=== PATIENT | male | born 1960 | race Caucasian/White ===

== ENCOUNTER 2020-04-12 15:16 | Inpatient (IN) | payer OTHER ==
[~2020-04-12] VITALS: Ht 180.3 cm; Wt 90.7 kg
[~2020-04-12 15:16] MED LIST: ADULT LOW DOSE81 MG PO; LIPITOR40 MG PO; METOPROLOL SUCC50 MG PO; NOHOMEMEDICATIONS
[2020-04-12 15:20] VITALS: BP 149/99
[2020-04-12 15:44] LABS: ABSOLUTE NEUTROPHILS 4.5 thou/uL (1.4-8.2); EOSINOPHILS 0.8 % (0.0-3.0); HEMATOCRIT 47.2 % (42.0-52.0); HEMOGLOBIN 15.8 gm/dL (14.0-18.0); LYMPHOCYTES 20.8 % (24.0-44.0); MCHC 33.4 g/dL (28.0-37.0); MCV 86.8 fL (80.0-100.0); MONOCYTES 8.1 % (1.0-8.0); PLATELET COUNT 190 thou/uL (150-400); POLYS 69.3 % (36.0-66.0); RBC 5.44 mil/uL (4.50-6.00); RDW 14.2 % (10.5-14.5); WBC 6.5 thou/uL (4.0-11.0)
[2020-04-12 16:26] LABS: CALCIUM 9.1 mg/dL (8.5-10.1); CREATININE 1.1 mg/dL (0.7-1.3); POTASSIUM 3.8 mmol/L (3.5-5.1)
[2020-04-12 16:35] LABS: ALBUMIN 4.1 g/dL (3.4-5.0)
[2020-04-12 16:41] LABS: TROPONIN-I 3.63 ng/mL (<0.06)
--- NOTE | 2020-04-12 17:49 | EKG ---
[facility] [place] [address] ELECTROCARDIOGRAM REPORT Name: ABRAN SORENSEN Room #: REG M.R.#: [id number] Admission: 04/12/20 Attend Phys: Discharge: Date of : 64 Report #: [id number] THIS REPORT FOR: cc: FAM - Family physician unknown FAM - Family physician unknown Cristopher Ramos MD [facility] ~ THIS REPORT FOR: //name// [facility] ED Test Date: 2020-04-12 Test Time: 15:23:54 Pat Name: ABRAN SORENSEN Department: Room: Gender: M Fashion Stylist: SATHYA : 1960 Requested By: Robbin Aburto Order Number: [id number] MD: Cristopher Ramos Measurements Intervals [place] Rate: 82 P: 50 ND: 160 QRS: 22 QRSD: 95 T: 31 QT: 386 QTc: 451 Interpretive Statements Sinus rhythm Left atrial enlargement Abnormal R-wave progression, late transition Borderline repolarization abnormality Baseline wander in lead(s) I,aVL,V1 Compared to ECG 08/17/2019 07:10:59 Atrial abnormality now present Left ventricular hypertrophy no longer present Electronically Signed On 04-12-2020 17:49:43 CDT by Cristopher Ramos [email or web address] <ELECTRONICALLY SIGNED> By: Cristopher Ramos MD, [facility] 04/12/20 1749 1523 1523 Cristopher Ramos MD, [facility] /EPI
[2020-04-12 17:51] LABS: URINE BILIRUBIN NEGATIVE (Negative); URINE BLOOD NEGATIVE (Negative); URINE CLARITY CLEAR; URINE COLOR YELLOW; URINE GLUCOSE-RANDOM* NEGATIVE (Negative); URINE KETONES NEGATIVE (Negative); URINE LEUKOCYTES-REFLEX NEGATIVE (Negative); URINE NITRITE-REFLEX NEGATIVE (Negative); URINE PROTEIN (DIPSTICK) NEGATIVE (Negative); URINE SPECIFIC GRAVITY 1.015 (1.005-1.035); URINE UROBILINOGEN 0.2 E.U./dl (0.2-1.0)
[2020-04-12 20:16] VITALS: BP 150/94
--- NOTE | 2020-04-13 00:48 | NUR ---
PATIENT TRANSFERRED FROM ER AND ADMITTED TO CCU FOR NSTEMI. ASSUMED CARE OF PATIENT AT APPROXIMATELY 1930. ADMISSION COMPLETED. DURING MED RECONCILE PATIENT STATED THAT HE STOPPED TAKING HIS ATORVASTATIN AFTER PREVIOUS HEART SURGERY IN AUG 2019 BECAUSE HE LOST A LOT OF WEIGHT IN A TWO WEEK PERIOD WHILE TAKING IT. PATIENT STATES THAT HE IS NOT TAKING ANY MEDICATIONS. BP IN 150s/90s. PATIENT DENIES ANY CHEST PAIN DURING ASSESSMENT. WILL CONTINUE TO MONITOR.
[2020-04-13 04:56] VITALS: BP 138/87
[2020-04-13 05:17] LABS: APTT 31.4 Seconds (24.5-32.8); PROTIME 10.2 Seconds (9.3-11.4)
[2020-04-13 05:22] LABS: CALCIUM 8.6 mg/dL (8.5-10.1); CREATININE 1.2 mg/dL (0.7-1.3); POTASSIUM 4.2 mmol/L (3.5-5.1)
[2020-04-13 05:36] LABS: TROPONIN-I 6.88 ng/mL (<0.06)
[2020-04-13 07:35] VITALS: BP 135/89
--- NOTE | 2020-04-13 09:48 | EKG ---
[facility] [place] [address] ELECTROCARDIOGRAM REPORT Name: ABRAN SORENSEN Room #: 200-I ADM IN M.R.#: [id number] Admission: 04/12/20 Attend Phys: Louis Blanton MD Discharge: Date of : 64 Report #: [id number] THIS REPORT FOR: cc: FAM - Family physician unknown FAM - Family physician unknown Marco Antonio Reynolds MD ~ THIS REPORT FOR: //name// [facility] Test Date: 2020-04-13 Test Time: 08:31:21 Pat Name: ABRAN SORENSEN Department: Room: 200 I Gender: M Director Of Occupational Health: COMPA : 1960 Requested By: Louis Blanton Order Number: [id number] MD: Marco Antonio Reynolds Measurements Intervals [place] Rate: 72 P: 58 ME: 162 QRS: 64 QRSD: 96 T: 81 QT: 381 QTc: 417 Interpretive Statements Sinus rhythm Left atrial enlargement Nonspecific ST-T wave changes Baseline wander in lead(s) V1,V2 Compared to ECG 04/12/2020 15:23:54 No significant change Electronically Signed On 04-13-2020 9:48:40 CDT by Marco Antonio Reynolds [email or web address] <ELECTRONICALLY SIGNED> By: Marco Antonio Reynolds MD 04/13/2048 0 0 Marco Antonio Reynolds MD /EPI
--- NOTE | 2020-04-13 11:25 | NUR ---
Received awake on bed. Due medications given as prescribed with minimal sips of water- Dr Hdz informed and aware. A+Ox4. With at bedside- update given. On telemetry- no complain of chest pain, crushing sensation and heaviness. On room air. Vital signs stable. On nothing per orem- pt informed and aware. Continent of bowel and bladder- able to use urinal and go to the toilet independently. Up ad scotty. With SL at R AC- intact and flushing well. For cardiac cath today- a/w time and consent to be signed. Pt fetched by laboratory tester staff via bed; report given; present during transfer. To continue monitoring patient.
[2020-04-13 12:53] VITALS: BP 118/67
--- NOTE | 2020-04-13 15:18 | NUR ---
Patient admits from home with stemi. 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 He sp with [facility] today and plans to call at [facility]. Offered to transfer to [facility] and patient reports he just wants to go home from here. Patients PCP is Dr Campbell at [facility]. [employer] COUNTER PERSON patient reports independent with adls and self care.
[2020-04-13 15:48] VITALS: BP 135/81
[2020-04-13] MEDS ORDERED: METOPROLOL SUCC50 MG PO (15:48)
[2020-04-13] MEDS ORDERED: ASPIR 8181 MG PO (15:48)
[2020-04-13] MEDS ORDERED: LIPITOR80 MG PO (15:48)
--- NOTE | 2020-04-13 16:27 | 2DMMODE ---
[facility] [address] [place] [address] 2 D/M-MODE ECHOCARDIOGRAM Name: ABRAN SORENSEN Room #: 200-I ADM IN M.R.#: [id number] Admission: 04/12/20 Attend Phys: Louis Blanton MD Discharge: Date of : 64 Report #: [id number] THIS REPORT FOR: cc: FAM - Family physician unknown FAM - Family physician unknown Blayne Terrazas MD [facility] ~ APPROVED REPORT Study performed: 04/13/2020 14:05:32 EXAM: Comprehensive 2D, Doppler, and color-flow Echocardiogram Patient Location: Bedside Room #: 200 Status: routine BSA: 2.11 HR: 61 bpm BP: 135/89 mmHg Rhythm: NSR Other Information Study Quality: Adequate Indications STEMI, status post angiogram no intervention done. Hx: CABG. 2D Dimensions RVDd: 35.47 mm IVSd: 13.74 (7-11mm) LVOT Diam: 23.38 (18-24mm) LVDd: 44.47 mm PWd: 10.10 (7-11mm) Ascending Ao: 37.33 (22-36mm) LVDs: 33.44 (25-40mm) Aortic Root: 38.99 mm Volumes Left Atrial Volume (Systole) Single Plane 4CH: 33.85 mL Single Plane 2CH: 61.72 mL LA ESV Index: 24.00 mL/m2 Aortic Valve AoV Peak Aakash.: 1.00 m/s AO Peak Gr.: 4.01 mmHg LVOT Max P.90 mmHg LVOT Max V: 0.69 m/s SOCORRO Vmax: 2.95 cm2 [facility] [address] [place] [address] 2 D/M-MODE ECHOCARDIOGRAM Name: EDUABRAN Room #: 200-I [facility] IN [facility].#: [id number] Admission: 04/12/20 Attend Phys: Louis Blanton MD Discharge: Date of : 64 Report #: [id number] Mitral Valve E/A Ratio: 1.4 MV Decel. Time: 244.07 ms MV E Max Aakash.: 0.46 m/s MV A Aakash.: 0.33 m/s MV PHT: 70.78 ms IVRT: 58.82 ms Pulmonary Valve PV Peak Aakash.: 0.87 m/s PV Peak Gr.: 3.05 mmHg Pulmonary Vein P Vein S: 0.34 m/s P Vein A: 0.22 m/s P Vein D: 0.27 m/s P Vein A Dur.: 147.6 msec P Vein S/D Ratio: 1.26 Tricuspid Valve TR Peak Aakash.: 1.90 m/s RAP Estimate: 5.00 mmHg TR Peak Gr.: 14.00 mmHg PA Pressure: 19.00 mmHg Left Ventricle The left ventricle is normal size. There is normal LV segmental wall motion. There is normal left ventricular wall thickness. Left ventricular systolic function is at the lower limits of normal LVEF is 50%. Moderate diastolic dysfunction Right Ventricle The right ventricle is normal size. Right ventricle is mildly hypokinetic. Atria The left atrium size is normal. The right atrium size is normal. Aortic Valve The aortic valve is normal in structure. No aortic regurgitation is present. There is no aortic valvular stenosis. Mitral Valve The mitral valve is normal in structure. Mild mitral regurgitation. No evidence of mitral valve stenosis. Tricuspid Valve The tricuspid valve is normal in structure. Mild tricuspid [facility] [place] [address] [place] [address] 2 D/M-MODE ECHOCARDIOGRAM Name: ABRAN SORENSEN Room #: 200-I ADM IN .R.#: [id number] Admission: 04/12/20 Attend Phys: Louis Blanton MD Discharge: Date of : 64 Report #: [id number] regurgitation. Estimated PAP is 20mmHg. Pulmonic Valve The pulmonary valve is normal in structure. Mild pulmonic regurgitation. Great Vessels Aortic root measures at the upper limits of normal. The ascending aorta is normal in size. IVC is normal in size and collapses >50% with inspiration. Pericardium There is no pericardial effusion. <Conclusion> Left ventricular systolic function is at the lower limits of normal There is normal LV segmental wall motion. LVEF is 50%. Moderate diastolic dysfunction Right ventricle is mildly hypokinetic. The aortic valve is normal in structure. No aortic regurgitation or stenosis The mitral valve is normal in structure. Mild mitral regurgitation. Mild tricuspid regurgitation. Estimated pulmonary artery pressure of 20mmHg. There is no pericardial effusion. <ELECTRONICALLY SIGNED> By: Blayne Terrazas MD, [facility] 04/13/20 1627 162 162 Blayne Terrazas MD, FAC /INF
--- NOTE | 2020-04-13 16:40 | NUR ---
ASSUMED CARE APPROX 1400. PT ALERT AND ORIENTED X4. ASSESSMENT CHARTED AND VSS. PT TO BE DISCHARGED HOME TODAY. PT SR ON TELE MONITOR. PT ON ROOM AIR W/O SIGNS OF DISTRESS NOTED. PT DENIES ACUTE PAIN. DENIES CHEST PAIN. BEDREST COMPLETED @1500. PT RT POST CATH GROIN SITE C/D/I. NO HEMATOME PRESENT. PT AMBULATED W/O DIFFICULTY AFTER BEDREST. AT BEDSIDE. TELE MONITOR REMOVED FROM PT. IV D/C'D. DISCHARGE INSTRUCTIONS/PACKET DISCUSSED WITH PT. AND PT DENY IS QUESTIONS OR CONCERNS REGARDING DISCHARGE INSTRUCTIONS.
[2020-04-13 16:44] VITALS: BP 135/81
--- NOTE | 2020-04-14 17:31 | CATHLAB ---
[facility] [place] [address] INVASIVE PROCEDURE REPORT Name: ABRAN SORENSEN Room #: 200-I DIS IN M.R.#: [id number] Admission: 04/12/20 Attend Phys: Louis Blanton MD Discharge: 04/13/20 Date of : 64 Report #: [id number] THIS REPORT FOR: cc: FAM - Family physician unknown FAM - Family physician unknown Benny Hdz MD [facility] ~ APPROVED REPORT Study performed: 04/13/2020 09:56:25 Patient Details Patient Status: In-Patient Room #: The patient is a 60 year-old male Event Personnel Benny Hdz Interactive Media Specialist, Lupe Kim RN RN, Marie Richmond RTR Monitor, Lashell Ponce RT(R)() Scrub Procedures Performed Art Access - R femoral artery* Left Heart Cath Coronaries, Bypass Grafts [id number] LHCCORCABG 97225 Initial Mod Sed Same Phys/QHP Gr5y [id number] 75720 Mod Sed Same Phys/QHP Ea 144665 Hemostasis w/ Mynx Aortogram Abdominal Peripheral Angio 616704 Procedure Narrative The Right Groin^ was infiltrated with 1% Lidocaine subcutaneous anesthesia. A PINNACLE 6FR Sheath #[id number] sheath was inserted into the RFA^. Coronary angiography was performed using coronary diagnostic catheters. The right coronary system was accessed and visualized with a JR4 catheter. The left coronary system was accessed and visualized with a JL4 catheter. The left ventricle was accessed and visualized with a PIGTAIL catheter. Left ventriculogram was performed in 30 degree projection. An aortogram of the abdominal aorta was performed. Pre-demployment femoral angiogram was performed . Closure device was deployed with a Fr MYNXGRIP 6/7F #[id number]. The patient tolerated the procedure well and there were no complications associated with the procedure. There was no hematoma. Intraoperative Conscious Sedation Sedation start time: 11:26 Case end Time: 12:02 Fentanyl 100 mcg Versed 2 mg Fluoro Time: 4.40 minutes [facility] [address] [place] [address] INVASIVE PROCEDURE REPORT Name: ABRAN SORENSEN Room #: 200-I [facility] IN .R.#: [id number] Admission: 04/12/20 Attend Phys: Louis Blanton MD Discharge: 04/13/20 Date of : 64 Report #: [id number] Dose: DAP 9798.30 cGycm2 1313 mGy Contrast Type and Amount: Omnipaque 150 ml Hemodynamics The aortic pressure is 112/66 mmHg with a mean of mmHg. The left ventricular pressure is 109/2 mmHg with a mean of mmHg. Conclusion #1. Normal left ventricular size inferior basilar hypokinetic segment EF 55% 1-2+ mitral regurgitation #2 abdominal aorta revealing mild aortic ectasia but no definite having aneurysm brisk flow #3 left main with mild disease giving rise to an LAD which occludes and a circumflex OM which remains intact. LAD is a high-grade lesion of 80% at the septal takeoff and then subtotally occluded at the bifurcation of the LAD diagonal branch #4 circumflex OM nondominant with mild disease #5 HASTINGS graft is mildly atretic but small caliber brisk flow into a small diffusely diseased mid distal LAD some subtle retrograde filling to the diagonal. LAD is small in caliber but extends around the apex. #6 proximal [place] right coronary artery occluded #7 SVG to the PDA remains intact some retrograde filling of the posterior lateral system is noted. No occlusive disease #8 patent SVG to diagonal branch remains intact and also providing some retrograde filling of the diagonal and proximal LAD. Recommendations and plan: Continue aggressive risk factor modification. Reinstitute medications which he had stopped due to noncompliance. No indication for intervention. Not clear the etiology of a troponin of 6.0. <ELECTRONICALLY SIGNED> By: Benny Hdz MD, [facility] 04/14/201729 29 29 Benny Hdz MD, FACC /INF
== END 2020-04-13 17:08 | disposition home or self-care (01) | DRG 280 ==
LOC: ER 15:16 → EROBS 18:22 → 2N 18:22
PROVIDERS: Physician Assistant; ADMIT Internal Medicine; ATTEND Internal Medicine
PROC: B2111ZZ Fluoroscopy of Multiple Coronary Arteries using Low Osmolar Contrast (ICD-10-PCS; principal; 2020-04-13)
PROC: B2181ZZ Fluoroscopy of Left Internal Mammary Bypass Graft using Low Osmolar Contrast (ICD-10-PCS; principal; 2020-04-13)
PROC: 4A023N7 Measurement of Cardiac Sampling and Pressure, Left Heart, Percutaneous Approach (ICD-10-PCS; principal; 2020-04-13)
PROC: B4101ZZ Fluoroscopy of Abdominal Aorta using Low Osmolar Contrast (ICD-10-PCS; principal; 2020-04-13)
PROC: B2131ZZ Fluoroscopy of Multiple Coronary Artery Bypass Grafts using Low Osmolar Contrast (ICD-10-PCS; principal; 2020-04-13)
PROC: B2151ZZ Fluoroscopy of Left Heart using Low Osmolar Contrast (ICD-10-PCS; principal; 2020-04-13)
DX: I21.4 Non-ST elevation (NSTEMI) myocardial infarction (principal); I50.31 Acute diastolic (congestive) heart failure; I25.110 Atherosclerotic heart disease of native coronary artery with unstable angina pectoris; E78.5 Hyperlipidemia, unspecified; I08.3 Combined rheumatic disorders of mitral, aortic and tricuspid valves; I10 Essential (primary) hypertension; E78.00 Pure hypercholesterolemia, unspecified; Z82.49 Family history of ischemic heart disease and other diseases of the circulatory system; Z95.1 Presence of aortocoronary bypass graft; Z79.82 Long term (current) use of aspirin; Z79.899 Other long term (current) drug therapy; Z91.14 Patient's other noncompliance with medication regimen
CPT/HCPCS: 10081

== ENCOUNTER → 2020-04-20 | Outpatient (CLI) | payer OTHER ==
[~2020-04-20] MED LIST changes: +ASPIR 8181 MG PO; +LIPITOR80 MG PO
== END ==
LOC: SJCVC 14:07
PROVIDERS: ATTEND Internal Medicine
DX: I51.7 Cardiomegaly (principal); R94.31 Abnormal electrocardiogram [ECG] [EKG]; I25.709 Atherosclerosis of coronary artery bypass graft(s), unspecified, with unspecified angina pectoris; I25.2 Old myocardial infarction; E78.5 Hyperlipidemia, unspecified; Z82.49 Family history of ischemic heart disease and other diseases of the circulatory system; Z79.82 Long term (current) use of aspirin; Z79.899 Other long term (current) drug therapy